=== PATIENT | female | born 1950 | race Caucasian/White ===

== ENCOUNTER → 2025-03-07 | Outpatient (CLI) | payer MEDICARE ==
--- NOTE | 2025-03-11 10:10 | HMCIMG ---
CLINICAL INDICATION: Asymptomatic menopausal state COMPARISON: None available TECHNIQUE: Bone densitometry is performed of the lumbar spine and left hip. FINDINGS: Total BMD of lumbar spine is 1.350 g/cm2 with a T-score of 2.8 and Z-score is 5.2. Total BMD of left radius is 0.584 g/cm2 with a T-score of 0.1 and Z-score is 2.6. FRAX SCORE: The 10 year fracture risk for a major osteoporotic fracture and radius fracture not reported IMPRESSION: 1. Normal lumbar spine and left wrist 2. Would recommend follow-up in 2 years World Health Organization criteria for BMD interpretation classify patients as Normal (T-score at or above -1.0), Osteopenic (T-score between -1.0 and -2.5), or Osteoporotic (T-score at or below -2.5). FRAX SCORE: A. All treatment decisions require clinical judgment and consideration of individual patient factors, including patient preferences, comorbidities, previous drug use, risk factors not captured in the FRAX model (e.g., frailty, falls, vitamin D deficiency, increased bone turnover, interval significant decline in bone density) and possible [id number]-estimation of fracture risk by FRAX. B. In addition, the NOF Guide recommends that FDA-approved medical therapies be considered in postmenopausal women and men age greater than or equal to 50 years with a: i. Hip or vertebral (clinical or morphometric) fracture. ii. T-score of less than or equal to -2.5 at the spine or hip. iii. Ten-year fracture probability by FRAX of greater than or equal to 3% for hip fracture of greater than or equal to 20% for major osteoporotic fracture.
== END | disposition home or self-care (01) ==
LOC: RAH 12:58
PROVIDERS: ATTEND Internal Medicine
DX: Z12.31 Encounter for screening mammogram for malignant neoplasm of breast (principal); Z78.0 Asymptomatic menopausal state
CPT/HCPCS: 77067; 77080

== ENCOUNTER → 2025-05-15 | Outpatient (CLI) | payer MEDICARE ==
[2025-05-15 11:03] LABS: INR 0.94 (0.85-1.15)
--- NOTE | 2025-05-15 12:20 | NUR ---
ULTRASOUND GUIDED LEFT BREAST BIOPSY PROCEDURE PERFORMED BY DR. RENO HERRERA. PUNCTURE SITE LEFT BREAST AT 2:00 AND 4:00 AND PATIENT TOLERATED PROCEDURE WELL. SPECIMENS COLLECTED AND SENT TO LAB. TISSUE MARKER X2 DEPLOYED AND BIOPSY NEEDLE REMOVED. END OF PROCEDURE AT 1205. BAND-AID X2 APPLIED AND NO BLEEDING NOTED. DISCHARGE INSTRUCTIONS GIVEN TO PATIENT AND VERBALIZED UNDERSTANDING. MAMMO OF LEFT BREAST TO FOLLOW FOR CONFIRMATION OF TISSUE MARKER PLACEMENT.
--- NOTE | 2025-05-15 14:38 | HMCIMG ---
DIGITAL left breast DIAGNOSTIC MAMMOGRAM Technique: The digital mammographic examination of left breast post biopsy in craniocaudal, mediolateral oblique views along with CAD was obtained. History: This is a 74 years year-old female who underwent left breast biopsy.. Patient has no complaint Reference:Prior mammogram from 03/07/2025 is available.. Breast composition: Breast composition B: There are scattered areas of fibroglandular density. Finding: The digital mammographic examination of left breast in craniocaudal and mediolateral oblique view along with CAD demonstrates to biopsy marker at 2:00 and 4:00 in satisfactory position.. There is no evidence of any dendritic mass, cluster microcalcification or architectural distortion. The retromammary fat appears to be normal. IMPRESSION: Biopsy marker in satisfactory position.. FINAL ASSESSMENT: Post-procedure Mammogram for Marker Placement. NOTE: IF A WORK-UP OF THIS PATIENT LEADS TO A BIOPSY, PLEASE FORWARD A COPY OF THE PATHOLOGY REPORT TO OUR OFFICE REQUIRED BY [facility] EFFECTIVE MARCH 29, 1994. A NEGATIVE MAMMOGRAM SHOULD NOT PRECLUDE BIOPSY OF A CLINICALLY PALPABLE SUSPICIOUS MASS, 10% OF BREAST CANCERS ARE MAMMOGRAPHICALLY OCCULT. THIS MAMMOGRAPHY FACILITY IS FULLY ACCREDITED BY THE FOOD AND DRUG [employer]RATION (FDA). THANK YOU FOR THIS REFERRAL.
--- NOTE | 2025-05-17 10:12 | HMCIMG ---
PERCUTANEOUS ULTRASOUND-GUIDED BIOPSY OF left breast at 2:00 and 4:00 BREAST MASS: CLINICAL HISTORY: This is a 74 lehvt-tyml-wam female with lesion in the left breast at 2:00 and 4:00. for ultrasound-guided biopsy. The risk and benefit was explained to the patient. The risks include bleeding and infection. The patient consented to the procedure. Procedure: Under ultrasound guidance left breast lesion at 2:00 measuring 0.76 x 0.4 cm. was localized. After sterile prep and drape, 1% Xylocaine was used for local anesthetic. Using a 14-gauge Bard gun a total of 3 core biopsy was obtained. The specimen was sent for histology and cell block. Patient tolerated procedure well. Procedure: Under ultrasound guidance left breast lesion at 4:00 measuring 0.56 x 0.39 was localized. After sterile prep and drape, 1% Xylocaine was used for local anesthetic. Using a 14-gauge Bard gun a total of 3 core biopsy was obtained. The specimen was sent for histology and cell block. Patient tolerated procedure well IMPRESSION: FINAL ASSESSMENT: Post-procedure Mammogram for Marker Placement. 1. PERCUTANEOUS ULTRASOUND-GUIDED BIOPSY OF left BREAST lesion at 4:00 and 2:00 WITH SPECIMENS SENT FOR HISTOLOGY AND CELL BLOCK. THE PATIENT TOLERATED PROCEDURE WELL. PATHOLOGY REPORT IS PENDING. 2. PATIENT IS TO HAVE A POST BIOPSY MARKER PLACEMENT UNILATERAL left BREAST MAMMOGRAM.
== END ==
LOC: RAH 09:27
PROVIDERS: ATTEND Internal Medicine
DX: N63.23 Unspecified lump in the left breast, lower outer quadrant (principal); N63.21 Unspecified lump in the left breast, upper outer quadrant; D24.2 Benign neoplasm of left breast; N60.22 Fibroadenosis of left breast; I10 Essential (primary) hypertension; G89.29 Other chronic pain; Z79.52 Long term (current) use of systemic steroids; Z79.01 Long term (current) use of anticoagulants; Z83.3 Family history of diabetes mellitus; Z82.49 Family history of ischemic heart disease and other diseases of the circulatory system; Z88.8 Allergy status to other drugs, medicaments and biological substances; Z79.899 Other long term (current) drug therapy; Z98.890 Other specified postprocedural states
CPT/HCPCS: 19083; 77065; 85610; 85730; 36415; 88305; 19084; A4215 ×3; A4648

== ENCOUNTER → 2025-05-17 | Outpatient (CLI) | payer MEDICARE ==
--- NOTE | 2025-05-17 21:53 | HMCIMG ---
STUDY: ABDOMINAL ULTRASOUND CLINICAL INFORMATION: Acute kidney failure, unspecified. TECHNIQUE: Transabdominal grayscale ultrasound of the abdomen was performed. COMPARISON: None provided. FINDINGS: LIVER: Liver measures 15.3 cm in craniocaudal dimension with normal sonographic echotexture. No focal hepatic lesion is described. GALL BLADDER: Gallbladder wall measures 2 mm in thickness, within normal limits. No abnormality is reported. BILIARY TREE: Common bile duct measures 2 mm in diameter, within normal limits. No intrahepatic biliary dilatation is reported. PANCREAS: Pancreas appears normal in size and echotexture as visualized. RIGHT KIDNEY: Right kidney measures 7.2 x 3.0 x 3.4 cm and is heterogeneous in echotexture. LEFT KIDNEY: Left kidney measures 8.5 x 5.1 x 4.2 cm. No additional abnormality is reported. SPLEEN: Spleen measures 8.0 cm in length and appears normal. AORTA AND IVC: Visualized abdominal aorta and inferior vena cava appear normal. OTHER: No additional abnormality is reported. IMPRESSION: * Small heterogeneous right kidney (7.2 cm) with asymmetric renal size relative to the left, suggestive of underlying medical renal disease; correlate with renal function tests and clinical history. * Otherwise unremarkable abdominal ultrasound including normal liver, biliary tree, pancreas, spleen, and visualized major abdominal vessels. /Jarek
== END | disposition home or self-care (01) ==
LOC: RAH 07:56
PROVIDERS: ATTEND Family Medicine
DX: N32.89 Other specified disorders of bladder (principal); N17.9 Acute kidney failure, unspecified
CPT/HCPCS: 76700